=== PATIENT | male | born 1990 | race Caucasian/White ===

== ENCOUNTER 2020-03-12 15:31 | Inpatient (IN) | payer MEDICAID ==
[~2020-03-12] VITALS: Ht 182.9 cm; Wt 191.1 kg
[2020-03-12 16:22] LABS: BASOPHILS 0.1 % (0-2); EOSINOPHILS 1.1 % (0-7); HEMATOCRIT 45.4 % (42.0-54.0); HEMOGLOBIN 15.5 g/dL (13.5-17.5); IMMATURE GRANULOCYTES 0.3 % (0-5); LYMPHOCYTES 15.3 % (15-50); MCH 30.8 pg (26.0-34.0); MCHC 34.1 g/dL (31.0-37.0); MCV 90.1 fL (80.0-100.0); MONOCYTES 7.1 % (2-11); NEUTROPHILS 76.1 % (40-80); PLATELET COUNT 384 10x3/uL (130-400); RBC 5.04 10x6/uL (4.20-6.10)
[2020-03-12 16:32] LABS: CALC OSMOLALITY 269 mosm/kg (275-300); CALCIUM 7.8 mg/dL (8.5-10.1); CARBON DIOXIDE 30.9 mmol/L (21.0-32.0); CHLORIDE - SERUM 103 mmol/L (98-107); CREATININE - SERUM 0.9 mg/dL (0.6-1.3); GLUCOSE 102 mg/dL (74-106); POTASSIUM - SERUM 4.2 mmol/L (3.5-5.1); SODIUM 133 mmol/L (136-145); UREA NITROGEN 24 mg/dL (7-18); eGFR NON AFRICAN AMERICAN > 90 mL/min (90-120)
[2020-03-12 16:42] LABS: AMORPHOUS SEDIMENT <1+ /lpf (NONE SEEN); BACTERIA FEW /hpf (NEGATIVE); BILIRUBIN NEGATIVE (NEGATIVE); EPITHELIAL CELLS OCC /hpf (0-5); GLUCOSE NEGATIVE (NEGATIVE); KETONE NEGATIVE (NEGATIVE); NITRITE NEGATIVE (NEGATIVE); RED CELLS - URINE NONE SEEN /hpf (0-5); UROBILINOGEN NORMAL (NORMAL); WHITE CELLS - URINE OCC /hpf (NEGATIVE)
[2020-03-12 16:46] VITALS: BP 136/80
[2020-03-12 16:47] LABS: ALKALINE PHOSPHATASE 88 U/L (30-120); ALT (SGPT) 23 U/L (10-68); BILIRUBIN - TOTAL 0.13 mg/dL (0.2-1.3); CKMB 2.7 U/L (0.0-3.6); CREATINE KINASE 105 UL (21-232); PRO BNP 29 pg/mL (0-125); PROTEIN - SERUM 4.7 g/dL (6.4-8.2); TROPONIN-I < 0.017 ng/mL (0.000-0.060)
[2020-03-12 16:49] LABS: APTT 30.4 SECONDS (22.8-39.4); INR 0.89 (0.85-1.17); PROTIME 12.1 SECONDS (11.6-15.0)
[2020-03-12 17:15] VITALS: BP 128/74
[2020-03-12 17:47] VITALS: BP 131/68
[2020-03-12 20:33] VITALS: BP 143/90; Ht 182.9 cm; Wt 191.1 kg
--- NOTE | 2020-03-12 22:09 | NUR ---
RECEIVED REPORT FROM JANEEN BAEZA IN ER. ARRIVED TO FLOOR AT 1999. ALERT AND ORIENTED X4. UP AD THUY. C/O ABDOMINAL AND BACK SWELLING. DENIES ANY PAIN AT THIS TIME. FATHER AT BEDSIDE. FATHER BROUGHT LOTS OF SNACKS AND SODA TO ROOM FOR HIM.REQUESTED SOMETHING TO EAT. GAVE SANDWICH BOX AND HE ATE 100%. DENIES ANY OTHER NEEDS. ASSESSMENT COMPLETE.
[2020-03-13] VITALS: BP 142/76
[2020-03-13 04:00] VITALS: BP 134/71
[2020-03-13 06:41] LABS: BASOPHILS 0 % (0-2); EOSINOPHILS 0 % (0-7); HEMATOCRIT 44.5 % (42.0-54.0); HEMOGLOBIN 14.6 g/dL (13.5-17.5); IMMATURE GRANULOCYTES 0.1 % (0-5); LYMPHOCYTES 12.2 % (15-50); MCH 29.9 pg (26.0-34.0); MCHC 32.8 g/dL (31.0-37.0); MEAN PLATELET VOLUME 10.5 fL (7.4-10.4); MONOCYTES 3.6 % (2-11); NEUTROPHILS 84.1 % (40-80); PLATELET COUNT 419 10x3/uL (130-400); RBC 4.89 10x6/uL (4.20-6.10); RDW 13.1 % (11.5-14.5)
[2020-03-13 06:53] LABS: WBC 9.4 10x3/uL (4.8-10.8)
[2020-03-13 07:07] LABS: ALKALINE PHOSPHATASE 90 U/L (30-120); ALT (SGPT) 23 U/L (10-68); CALCIUM 7.2 mg/dL (8.5-10.1); CHLORIDE - SERUM 105 mmol/L (98-107); CREATININE - SERUM 0.8 mg/dL (0.6-1.3); POTASSIUM - SERUM 4.7 mmol/L (3.5-5.1); PROTEIN - SERUM 3.7 g/dL (6.4-8.2); SODIUM 137 mmol/L (136-145); UREA NITROGEN 24 mg/dL (7-18); eGFR NON AFRICAN AMERICAN > 90 mL/min (90-120)
[2020-03-13 07:08] LABS: BILIRUBIN - TOTAL 0.08 mg/dL (0.2-1.3); CALC OSMOLALITY 282 mosm/kg (275-300); GLUCOSE 180 mg/dL (74-106)
[2020-03-13 09:35] VITALS: BP 145/70
[2020-03-13 14:33] VITALS: BP 156/72
--- NOTE | 2020-03-13 19:00 | NUR ---
REPORT RECEIVED, WILL CONTINUE POC. PATIENT IS RESTING WITH EYES CLOSED, LYING ON LEFT SIDE. NO S/S OF DISTRESS OBSERVED, RR EVEN AND UNLABORED ON ROOM AIR. PATIENT DENIES NEEDS AT THIS TIME. CL IN REACH, BED LOCKED AND LOWERED. WILL CTM.
[2020-03-13 19:01] VITALS: BP 148/75
[2020-03-13 20:00] VITALS: BP 154/76
--- NOTE | 2020-03-13 21:00 | NUR ---
PATIENT URINATED IN URINAL, URINE COLLECTED IN 24HR COLLECTION CONTAINER AND PLACED ON ICE.
[2020-03-14] VITALS (15 sets, daily range): BP systolic 125–150; BP diastolic 54–79
[2020-03-14 06:18] LABS: BASOPHILS 0.1 % (0-2); EOSINOPHILS 0 % (0-7); HEMATOCRIT 43.7 % (42.0-54.0); HEMOGLOBIN 14.8 g/dL (13.5-17.5); IMMATURE GRANULOCYTES 0.5 % (0-5); LYMPHOCYTES 8.2 % (15-50); MCH 30.9 pg (26.0-34.0); MCHC 33.9 g/dL (31.0-37.0); MCV 91.2 fL (80.0-100.0); MEAN PLATELET VOLUME 10.5 fL (7.4-10.4); MONOCYTES 2.4 % (2-11); NEUTROPHILS 88.8 % (40-80); PLATELET COUNT 412 10x3/uL (130-400); RBC 4.79 10x6/uL (4.20-6.10)
[2020-03-14 06:23] LABS: APTT 29.2 SECONDS (22.8-39.4); INR 0.95 (0.85-1.17); PROTIME 12.6 SECONDS (11.6-15.0)
[2020-03-14 06:34] LABS: CALC OSMOLALITY 282 mosm/kg (275-300); CALCIUM 7.4 mg/dL (8.5-10.1); CARBON DIOXIDE 28.8 mmol/L (21.0-32.0); CHLORIDE - SERUM 107 mmol/L (98-107); CREATININE - SERUM 0.8 mg/dL (0.6-1.3); PHOSPHOROUS 2.9 mg/dL (2.5-4.9); POTASSIUM - SERUM 4.5 mmol/L (3.5-5.1); SODIUM 139 mmol/L (136-145); UREA NITROGEN 20 mg/dL (7-18); eGFR NON AFRICAN AMERICAN > 90 mL/min (90-120)
[2020-03-14 06:36] LABS: GLUCOSE 128 mg/dL (74-106)
[2020-03-14 06:38] LABS: COMPLEMENT C4 39.4 mg/dL (17.4-52.2)
[2020-03-14 10:11] LABS: ANA REFLEX - DIRECT Negative (Negative)
--- NOTE | 2020-03-14 10:20 | NUR ---
PT RETURNED FROM KIDNEY BIOPSY. LEFT BACK DRESSING C/D/I. PT ALERT AND ORIENTED BUT STATES HE IS "SLEEPY." VS STABLE. ON ROOM AIR. IR NURSE STATES SHE GAVE HYDRALAZINE, FENTANYL, AND BENADRYL. BED LOW. CL IN REACH. WILL CONTINUE TO MONITOR.
--- NOTE | 2020-03-14 10:29 | NUR ---
I have reviewed this patient and I concur with the Shift Assessment completed by the Licensed Practical Nurse today this shift.
--- NOTE | 2020-03-14 14:26 | NUR ---
BP 150/76. GAVE LABETOLOL IV PRN. WILL CONTINUE TO MONITOR.
--- NOTE | 2020-03-14 17:13 | NUR ---
24 HR URINE COLLECTED AND TAKEN TO LAB.
[2020-03-14 18:30] LABS: CREATININE - SERUM 0.8 mg/dL (0.6-1.3)
--- NOTE | 2020-03-14 22:03 | NUR ---
PT IN BED, AAO X 3, RESP EVEN AND UNLABORED. NO DISTRESS NOTED, CL IN REACH, SR UP X 2.
[2020-03-15] VITALS: BP 133/68
[2020-03-15 04:00] VITALS: BP 121/62
[2020-03-15 06:33] LABS: HEMATOCRIT 43.5 % (42.0-54.0); HEMOGLOBIN 14.4 g/dL (13.5-17.5); MCH 30.3 pg (26.0-34.0); MCHC 33.1 g/dL (31.0-37.0); MCV 91.4 fL (80.0-100.0); MEAN PLATELET VOLUME 10.5 fL (7.4-10.4); PLATELET COUNT 437 10x3/uL (130-400); RBC 4.76 10x6/uL (4.20-6.10); RDW 13.4 % (11.5-14.5); WBC 21.1 10x3/uL (4.8-10.8)
[2020-03-15 06:48] LABS: CALC OSMOLALITY 280 mosm/kg (275-300); CALCIUM 7.4 mg/dL (8.5-10.1); CARBON DIOXIDE 27.2 mmol/L (21.0-32.0); CHLORIDE - SERUM 107 mmol/L (98-107); CREATININE - SERUM 0.8 mg/dL (0.6-1.3); GLUCOSE 117 mg/dL (74-106); PHOSPHOROUS 2.7 mg/dL (2.5-4.9); POTASSIUM - SERUM 4.1 mmol/L (3.5-5.1); SODIUM 138 mmol/L (136-145); UREA NITROGEN 23 mg/dL (7-18); eGFR NON AFRICAN AMERICAN > 90 mL/min (90-120)
[2020-03-15 09:11] LABS: HEPATITIS C ANTIBODY <0.1 S/CO RAT (0.0-0.9)
[2020-03-15 09:42] VITALS: BP 147/73
[2020-03-15 11:45] LABS: LYMPHOCYTES 5 % (15-50); MONOCYTES 5 % (2-11); NEUTROPHILS 90 % (40-80); PLATELET ESTIMATE INCREASED
[2020-03-15 11:46] LABS: ANISOCYTOSIS OCC
--- NOTE | 2020-03-15 12:04 | NUR ---
I have reviewed this patient and I concur with the Shift Assessment completed by the Licensed Practical Nurse today this shift.
[2020-03-15 13:03] VITALS: BP 147/69
--- NOTE | 2020-03-15 14:46 | MORECARE ---
CASE MANAGEMENT DISCHARGE SUMMARY PATIENT: ARI PINZON UNIT: [id number] ADM DATE: 03/13/20 AGE: 29 : [birth year] SEX: M ROOM/BED: D.2108 AUTHOR: ANNE MARIE RICE PHYSICIAN: REFERRING PHYSICIAN: MARTA ALDANA MD DATE OF SERVICE: 03/15/20 Discharge Plan Patient Name: ARI PINZON Facility: [facility]:[place] : 1990 Planned Disposition: Home Anticipated Discharge Date: Discharge Date: Expected LOS: Initial Reviewer: [email or web address] Initial Review Date: 03/15/2020 Generated: 03/15/20 3:45 pm Patient Name: ARI PINZON Page [id number] at 1446 All edits/amendments must be made on the electronic document DICTATION DATE: 03/15/20 1445 REFINERY OPERATOR ALKYLATION: SHAW 03/15/20 1445 RPT#: [id number] DC DATE: STATUS: ADM IN [facility] [address] [place] [address] END OF REPORT
--- NOTE | 2020-03-15 16:08 | MORECARE ---
CASE MANAGEMENT DISCHARGE SUMMARY PATIENT: ARI HANNAH UNIT: [id number] ADM DATE: 03/13/20 AGE: 29 : [birth year] SEX: M ROOM/BED: D.2108 AUTHOR: ANNE MARIE RICE PHYSICIAN: REFERRING PHYSICIAN: MARTA ALDANA MD DATE OF SERVICE: 03/15/20 Discharge Plan Patient Name: ARI HANNAH [facility] [facility] 1990 Planned Disposition: Home Anticipated Discharge Date: Discharge Date: Expected LOS: Initial Reviewer: [email or web address] Initial Review Date: 03/15/2020 Generated: 03/15/20 5:07 pm DCPIA - Discharge Planning Initial Assessment Updated by [email or web address]: Nathaly Dent on 03/15/20 4:03 pm * Is the patient Alert and Oriented? Yes * How many steps to enter\exit or inside your home? few/0 * PCP None * Pharmacy [facility] on [address] * Preadmission Environment Home with Family * ADLs Independent * Equipment None * List name and contact numbers for known caregivers / representatives who currently or will assist patient after discharge: Germania Hannah- mother - [phone] * Verbal permission to speak to the caregivers and representatives has been obtained from the patient. Yes * Community resources currently utilized None * Additional services required to return to the preadmission environment? No * Can the patient safely return to the preadmission environment? Yes * Has this patient been hospitalized within the prior 30 days at any hospital? No Last DP export: 03/15/20 1:46 p Patient Name: ARI HANNAH Page [id number] at 1608 All edits/amendments must be made on the electronic document DICTATION DATE: 03/15/201606 CONTENT DIRECTOR: SHAW 03/15/201606 RPT#: [id number] DC DATE: STATUS: ADM IN [facility] [address] [place] [address] END OF REPORT
--- NOTE | 2020-03-15 16:26 | MORECARE ---
CASE MANAGEMENT DISCHARGE SUMMARY PATIENT: ARI HANNAH UNIT: [id number] ADM DATE: 03/13/20 AGE: 29 : [birth year] SEX: M ROOM/BED: D.2103 AUTHOR: ANNE MARIE RICE PHYSICIAN: REFERRING PHYSICIAN: MARTA ALDANA MD DATE OF SERVICE: 03/15/20 Discharge Plan Patient Name: ARI HANNAH Facility: [facility]:[place] : 1990 Planned Disposition: Home Anticipated Discharge Date: Discharge Date: Expected LOS: Initial Reviewer: [email or web address] Initial Review Date: 03/15/2020 Generated: 03/15/20 5:26 pm Comments DCP- Discharge Planning Updated by [id number]: Nathaly Dent on 03/15/20 3:[address] Patient Name: ARI HANNAH Admission Status: ER Accout number: [id number] Admission Date: 03-13-2020 : 1990 Admission Diagnosis:NEPHROTIC SYNDROME WITH UNSPECIFIED MORPHOLOGIC CHANGES Attending: MARTA ALDANA Current LOS: 2 Anticipated DC Date: Planned Disposition: Home Primary Insurance: MEDICAID [place] PEND[place] Discharge Planning Comments: CM met with patient to complete initial dc planning assessment. CM educated patient on the CM role and verbal consent given by patient to complete assessment. Patient lives at home with mother. At discharge patient plans to return and feels this is a safe discharge. CM discussed availability of home health, rehab services, and medical equipment. Patient denied known discharge needs at this time. States his father will pick him up on discharge. I informed him when the Medicaid paperwork was received in the mail to follow the instructions on signing up with a primary care doctor, he voiced understanding. CM will continue to follow and will assist as needed with dc plans/needs. Cover Maker: Nathaly Dent DCPIA - Discharge Planning Initial Assessment Updated by [email or web address]: Nathaly Dent on 03/15/20 4:03 pm * Is the patient Alert and Oriented? Yes * How many steps to enter\exit or inside your home? few/0 * PCP None * Pharmacy [facility] [address] * Preadmission Environment Home with Family * ADLs Independent * Equipment None * List name and contact numbers for known caregivers / representatives who currently or will assist patient after discharge: Germania Hannah- mother - [phone] * Verbal permission to speak to the caregivers and representatives has been obtained from the patient. Yes * Community resources currently utilized None * Additional services required to return to the preadmission environment? No * Can the patient safely return to the preadmission environment? Yes * Has this patient been hospitalized within the prior 30 days at any hospital? No Last DP export: 03/15/20 3:08 p Patient Name: ARI HANNAH Page 59412 at 1626 All edits/amendments must be made on the electronic document DICTATION DATE: 03/15/201625 EXERCISE TEACHER: SHAW 03/15/201625 RPT#: [id number] DC DATE: STATUS: ADM IN [facility] [address] [place] [address] END OF REPORT
[2020-03-15 20:00] VITALS: BP 149/77
[2020-03-16 04:00] VITALS: BP 150/91
--- NOTE | 2020-03-16 04:36 | NUR ---
I have reviewed this patient and I concur with the Shift Assessment completed by the Licensed Practical Nurse today this shift.
[2020-03-16 05:12] LABS: BASOPHILS 0.1 % (0-2); EOSINOPHILS 0.2 % (0-7); HEMATOCRIT 43.8 % (42.0-54.0); HEMOGLOBIN 14.4 g/dL (13.5-17.5); IMMATURE GRANULOCYTES 0.4 % (0-5); LYMPHOCYTES 18.8 % (15-50); MCH 30.1 pg (26.0-34.0); MCHC 32.9 g/dL (31.0-37.0); MCV 91.6 fL (80.0-100.0); MEAN PLATELET VOLUME 10.1 fL (7.4-10.4); MONOCYTES 7.8 % (2-11); NEUTROPHILS 72.7 % (40-80); PLATELET COUNT 356 10x3/uL (130-400); RBC 4.78 10x6/uL (4.20-6.10); RDW 13.1 % (11.5-14.5)
[2020-03-16 05:17] LABS: WBC 12.9 10x3/uL (4.8-10.8)
[2020-03-16 05:30] LABS: CALC OSMOLALITY 280 mosm/kg (275-300); CALCIUM 7.4 mg/dL (8.5-10.1); CARBON DIOXIDE 30.6 mmol/L (21.0-32.0); CHLORIDE - SERUM 110 mmol/L (98-107); CREATININE - SERUM 0.8 mg/dL (0.6-1.3); GLUCOSE 90 mg/dL (74-106); PHOSPHOROUS 2.2 mg/dL (2.5-4.9); POTASSIUM - SERUM 4.2 mmol/L (3.5-5.1); SODIUM 140 mmol/L (136-145); UREA NITROGEN 19 mg/dL (7-18); eGFR NON AFRICAN AMERICAN > 90 mL/min (90-120)
[2020-03-16 08:50] VITALS: BP 145/89
[2020-03-16 10:11] LABS: ANTI-GLOMERULAR BASMENT MEMBRN 2 units (0-20)
[2020-03-16] MEDS ORDERED: AMOXICILLIN500 M1 PO (10:30)
[2020-03-16] MEDS ORDERED: LISINOPRIL40 MG PO (10:30)
[2020-03-16] MEDS ORDERED: PREDNISONE20 MG PO (10:31)
[2020-03-16 11:00] VITALS: BP 141/79
--- NOTE | 2020-03-16 13:54 | NUR ---
PT'S DC INSTRUCTIONS REVIEWED. IV REMOVED. DAD HERE FOR TRANSPORT.
--- NOTE | 2020-03-17 09:26 | MORECARE ---
CASE MANAGEMENT DISCHARGE SUMMARY PATIENT: ARI HANNAH UNIT: [id number] ADM DATE: 03/13/20 AGE: 29 : [birth year] SEX: M ROOM/BED: D.2104 AUTHOR: ANNE MARIE RICE PHYSICIAN: REFERRING PHYSICIAN: MARTA ALDANA MD DATE OF SERVICE: 03/17/20 Discharge Plan Patient Name: ARI HANNAH Facility: [facility]:[place] : 1990 Planned Disposition: Home Anticipated Discharge Date: Discharge Date: 03/16/2020 Expected LOS: Initial Reviewer: [email or web address] Initial Review Date: 03/15/2020 Generated: 03/17/20 10:25 am Comments DCP- Discharge Planning Updated by [email or web address]: Nathaly Dent on 03/15/20 3:[address] Patient Name: ARI HANNAH Admission Status: ER Accout number: [id number] Admission Date: 03-13-2020 : 1990 Admission Diagnosis:NEPHROTIC SYNDROME WITH UNSPECIFIED MORPHOLOGIC CHANGES Attending: MARTA ALDANA Current LOS: 2 Anticipated DC Date: Planned Disposition: Home Primary Insurance: MEDICAID [place] PENDING Discharge Planning Comments: CM met with patient to complete initial dc planning assessment. CM educated patient on the CM role and verbal consent given by patient to complete assessment. Patient lives at home with mother. At discharge patient plans to return and feels this is a safe discharge. CM discussed availability of home health, rehab services, and medical equipment. Patient denied known discharge needs at this time. States his father will pick him up on discharge. I informed him when the Medicaid paperwork was received in the mail to follow the instructions on signing up with a primary care doctor, he voiced understanding. CM will continue to follow and will assist as needed with dc plans/needs. Tanbark Peeler: Nathaly Dent DCPIA - Discharge Planning Initial Assessment Updated by [email or web address]: Nathaly Dent on 03/15/20 4:03 pm * Is the patient Alert and Oriented? Yes * How many steps to enter\exit or inside your home? few/0 * PCP None * Pharmacy [facility] [address] * Preadmission Environment Home with Family * ADLs Independent * Equipment None * List name and contact numbers for known caregivers / representatives who currently or will assist patient after discharge: Germania Hannah- mother - [phone] * Verbal permission to speak to the caregivers and representatives has been obtained from the patient. Yes * Community resources currently utilized None * Additional services required to return to the preadmission environment? No * Can the patient safely return to the preadmission environment? Yes * Has this patient been hospitalized within the prior 30 days at any hospital? No Last DP export: 03/15/20 3:26 p Patient Name: ARI HANNAH Page [phone] at 0926 All edits/amendments must be made on the electronic document DICTATION DATE: 03/17/20924 SUPERVISING EDITOR TRAILER: SHAW 03/17/20924 RPT#: [id number] DC DATE:03/16/20 STATUS: DIS IN [facility] [address] [place] [address] END OF REPORT
[2020-03-17 14:10] LABS: ANCA - ANTIMYELOPEROXIDASE <9.0 U/mL (0.0-9.0); ANCA - ANTIPROTEINASE 3 <3.5 U/mL (0.0-3.5); ANCA - ATYPICAL <1:20 titer (Neg:<1:20); ANCA - CYTOPLASMIC <1:20 titer (Neg:<1:20); ANCA - PERINUCLEAR <1:20 titer (Neg:<1:20)
== END 2020-03-16 13:55 | disposition home or self-care (01) | DRG 683 ==
LOC: D.ER 15:31 → D.M2 18:34 → OBSVTIME 19:40 → D.M2 03-13 12:00
PROVIDERS: Family Medicine; General Practice; Internal Medicine Nephrology; ADMIT Family Medicine; ATTEND Family Medicine
PROC: 0TB13ZX Excision of Left Kidney, Percutaneous Approach, Diagnostic (ICD-10-PCS; principal; 2020-03-14 09:29)
DX: I12.9 Hypertensive chronic kidney disease with stage 1 through stage 4 chronic kidney disease, or unspecified chronic kidney disease (principal); E87.1 Hypo-osmolality and hyponatremia; F17.213 Nicotine dependence, cigarettes, with withdrawal; N18.9 Chronic kidney disease, unspecified; R80.9 Proteinuria, unspecified; R73.9 Hyperglycemia, unspecified; F12.90 Cannabis use, unspecified, uncomplicated; D47.3 Essential (hemorrhagic) thrombocythemia

== ENCOUNTER 2020-04-18 21:19 | Emergency (ER) | payer SELFPAY ==
[~2020-04-18] VITALS: Ht 182.9 cm; Wt 103.4 kg
[~2020-04-18 21:19] MED LIST: AMOXICILLIN500 M1 PO; LISINOPRIL40 MG PO; PREDNISONE20 MG PO
[2020-04-18 21:39] VITALS: Ht 182.9 cm; Wt 103.4 kg
[2020-04-18 22:20] LABS: ANION GAP 8.4 mmol/L (8-16); CALCIUM 7.9 mg/dL (8.5-10.1); CARBON DIOXIDE 28.6 mmol/L (21.0-32.0); CREATININE - SERUM 1.4 mg/dL (0.6-1.3)
[2020-04-18 22:22] LABS: HEMATOCRIT 46.1 % (42.0-54.0); MCH 30.9 pg (26.0-34.0); MCHC 34.7 g/dL (31.0-37.0); MEAN PLATELET VOLUME 9.6 fL (7.4-10.4); PLATELET COUNT 516 10x3/uL (130-400); RBC 5.18 10x6/uL (4.20-6.10); RDW 12.1 % (11.5-14.5); WBC 21.4 10x3/uL (4.8-10.8)
[2020-04-18 22:34] LABS: BILIRUBIN - TOTAL 0.26 mg/dL (0.2-1.3); PROTEIN - SERUM 5.9 g/dL (6.4-8.2)
[2020-04-18 22:37] LABS: EOSINOPHILS 2 % (0-7); LYMPHOCYTES 16 % (15-50); MONOCYTES 4 % (2-11); NEUTROPHILS 78 % (40-80); PLATELET ESTIMATE INCREASED
[2020-04-18 22:50] LABS: ALBUMIN 0.4 g/dL (3.4-5.0)
[2020-04-18] MEDS ORDERED: KEFLEX500 MG PO (22:58)
[2020-04-18 23:19] VITALS: BP 168/85
== END 2020-04-18 23:20 | disposition home or self-care (01) ==
LOC: D.ER 21:19
PROVIDERS: Family Medicine
DX: H66.91 Otitis media, unspecified, right ear (principal); D72.829 Elevated white blood cell count, unspecified; N04.9 Nephrotic syndrome with unspecified morphologic changes; Z91.19 Patient's noncompliance with other medical treatment and regimen; Z72.0 Tobacco use